=== PATIENT | male | born 1945 | race Caucasian/White ===

== ENCOUNTER 2016-08-16 15:04 | Emergency (ER) | payer MEDICARE, OTHER ==
[2016-08-16 15:26] VITALS: BP 147/76
[2016-08-16] MEDS ORDERED: Sodium Chloride 0.9% 10 ML Syringe FLUSH PRN (15:44)
--- NOTE | 2016-08-16 16:05 | EDM.PDOC ---
ED HISTORY OF PRESENT ILLNESS - General Chief Complaint: Cardiovascular Problem Stated Complaint: Irregular heart beat Time Seen by Provider: 08/16/16 15:35 Source of Information: Reports: Patient, RN notes reviewed History Limitations: Reports: No limitations - History of Present Illness INITIAL COMMENTS - FREE TEXT/NARRATIVE: 71 year old male presents to the ED today with complaints of intermittent palpitations and irregular heart beat. He says he feels the palpitations in his chest and will check his pulse, noting it to be irregular. He reports an abnormal sensation in his chest when this happens. He denies chest pain but describes it as a discomfort similar to feeling scared. He is unable to describe the pain. He denies pressure, heaviness, or sharp chest pain. He denies syncope, lightheadedness, dizziness, diaphoresis, shortness of breath, cough. He has a history hypertension, high cholesterol, and lower extremity edema. He denies history of AL. He had a cardiac cath about 15 years ago which was normal. He used to smoke but quit in 1979. He is from [facility] but is currently working in [place]. No recent illness, fever or chills. He denies lower extremity edema or unilateral calf pain or redness. After reviewing his medications, I see that he is on diltiazem. When asked why he is on this, he says for high blood pressure. He has no history of a.fib that he's aware of. - Related Data Allergies/ADRs: Allergies Allergy/AdvReac Type Severity Reaction Status Date / Time No Known Allergies Allergy Verified 08/16/16 15:19 Home Meds: Home Meds Diltiazem [Cardizem CD] 180 mg PO DAILY 08/16/16 [History] Insulin Detemir [Levemir] 45 unit SUBCUT BID 08/16/16 [History] Insulin Lispro [Humalog] 15 unit SQ TID 08/16/16 [History] Naproxen Sodium [Aleve] 2 tab PO BID 08/16/16 [History] Triamterene/Hydrochlorothiazid [Triamterene-HCTZ 37.5-25 MG] 1 cap PO DAILY [History] Past Medical History Cardiovascular History: Reports: Hypertension Endocrine/Metabolic History: Reports: Diabetes, type I Oncologic (Cancer) History: Reports: Prostate - Past Surgical History GI Surgical History: Reports: Other (see below) Other GI Surgeries/Procedures: heartburn Social & Family History - Tobacco Use Smoking Status *Q: Former Smoker Used Tobacco, but Quit: No - Recreational Drug Use Recreational Drug Use: No ED ROS GENERAL - Review of Systems Review Of Systems: See Below Constitutional: Reports: no symptoms. Denies: fever, chills, diaphoresis Respiratory: Reports: No Symptoms. Denies: Shortness of Breath, Pleuritic Chest Pain, Cough Cardiovascular: Reports: Chest pain, Palpitations. Denies: Edema, Lightheadedness, Syncope GI/Abdominal: Reports: No symptoms. Denies: Abdominal pain, Nausea, Vomiting ED EXAM, GENERAL - Physical Exam Exam: See Below Exam Limited By: No limitations General Appearance: alert, WD/WN, no apparent distress Respiratory/Chest: no respiratory distress, lungs clear, normal breath sounds, no accessory muscle use, chest non-tender Cardiovascular: normal peripheral pulses, regular rate, rhythm, no edema, no murmur, other (occasional rare PVC on diver's tender, currently asymptomatic ) GI/Abdominal: normal bowel sounds, soft, non tender Extremities: normal inspection, normal range of motion, non-tender, no pedal edema. No: leg pain, increased warmth, redness Neurological: alert, oriented, normal cognition Skin Exam: Warm, Dry, Intact EKG INTERPRETATION EKG Date: 08/16/16 Time: 15:30 Rhythm: NSR Rate (beats/min): 69 [place]: normal P-wave: present QRS: normal ST-T: normal QT: normal EKG Interpretation Comments: EKG read by Dr. Paula. No acute changes. Course - Vital Signs Last Recorded V/S: Last Vital Signs Temp 98.0 F 08/16/16 15:23 Pulse 72 08/16/16 15:23 Resp 18 08/16/16 15:23 BP 147/76 H 08/16/16 15:23 Pulse Ox 97 08/16/16 15:23 - Orders/Labs/Meds Orders: Active Orders 24 hr Category Date Time Status Cardiac Monitoring [RC] . DIRECTED Care 08/16/16 15:44 Active EKG 12 Lead [EKG Documentation Completion] [RC] STAT Care 08/16/16 15:44 Active Holter Monitor 48 Hours [RC] .PRN Care 08/16/16 16:42 Ordered Peripheral IV Care [RC] . DIRECTED Care 08/16/16 15:46 Active CXR [Chest 1V Frontal] [CR] Stat Exams 08/16/16 15:44 Taken Sodium Chloride 0.9% [Saline Flush] Med 08/16/16 15:44 Active 10 ml FLUSH ASDIRECTED PRN Peripheral IV Insertion Adult [OM.PC] Stat Oth 08/16/16 15:46 Ordered Medication Orders Sodium Chloride (Saline Flush) 10 ml FLUSH ASDIRECTED PRN PRN Reason: Keep Vein Open Last Admin: 08/16/16 15:59 Dose: 10 ml Labs: Laboratory Tests 08/16/16 08/16/16 Range/Units 15:55 15:55 WBC 5.05 (4.23-9.07) K/mm3 RBC 4.86 (4.63-6.08) M/mm3 Hgb 13.8 (13.7-17.5) gm/L Hct 41.6 (40.1-51.0) % MCV 85.6 (79.0-92.2) fl MCH 28.4 (25.7-32.2) pg MCHC 33.2 (32.2-35.5) g/dl RDW Std Deviation 42.0 (35.1-43.9) fL Plt Count 162 L (163-337) K/mm3 MPV 9.9 (9.4-12.3) fl Neut % (Auto) 52.9 (34.0-67.9) % Lymph % (Auto) 30.3 (21.8-53.1) % Pepin % (Auto) 10.1 (5.3-12.2) % Eos % (Auto) 5.7 (0.8-7.0) Baso % (Auto) 0.8 (0.1-1.2) % Neut # (Auto) 2.67 (1.78-5.38) K/mm3 Lymph # (Auto) 1.53 (1.32-3.57) K/mm3 Pepin # (Auto) 0.51 (0.30-0.82) K/mm3 Eos # (Auto) 0.29 (0.04-0.54) K/mm3 Baso # (Auto) 0.04 (0.01-0.08) K/mm3 Sodium 141 (136-145) mEq/L Potassium 3.2 L (3.5-5.1) mEq/L Chloride 105 (98-107) mEq/L Carbon Dioxide 26 (21-32) mEq/L Anion Gap 13.2 (5-15) BUN 11 (7-18) mg/dL Creatinine 0.8 (0.7-1.3) mg/dL Est Cr Clr Drug Dosing 90.26 mL/min Estimated GFR (MDRD) > 60 (>60) mL/min BUN/Creatinine Ratio 13.8 L (14-18) Glucose 121 H (83-115) mg/dL Calcium 8.6 (8.5-10.1) mg/dL Total Bilirubin 0.4 (0.2-1.0) mg/dL AST 23 (15-37) U/L ALT 47 (16-63) U/L Alkaline Phosphatase 88 (46-116) U/L Troponin I < 0.017 (0.00-0.056) ng/mL Total Protein 6.3 L (6.4-8.2) g/dl Albumin 3.6 (3.4-5.0) g/dl Globulin 2.7 gm/dL Albumin/Globulin Ratio 1.3 (1-2) Meds: Medications Generic Name Dose Route Start Last Admin Trade Name Freq PRN Reason Stop Dose Admin Sodium Chloride 10 ml 08/16/16 15:44 08/16/16 15:59 Saline Flush FLUSH 10 ml ASDIRECTED PRN Administration Keep Vein Open Discontinued Medications Generic Name Dose Route Start Last Admin Trade Name Freq PRN Reason Stop Dose Admin Potassium Chloride 20 meq 08/16/16 16:43 08/16/16 17:18 Klor-Con M20 PO 08/16/16 16:44 20 meq ONETIME ONE Administration - Re-Assessments/Exams Free Text/Narrative Re-Assessment/Exam: CBC is normal. CMP reveals potassium of 3.2, otherwise normal. Troponin is WNL. EKG reveals NSR with no ischemic changes or ectopy. Chest xray reveals normal mediastinum and heart size. No pulmonary infiltrates or effusions. Patient was monitored throughout his stay. He has a very occasional PVC on the diver's tender. BP and heart rate were stable. He was given 20 meq of PO KcL for potassium of 3.2. He was placed on a 48 hour Holter monitor. The patient said he will be here for quite some time and would prefer to f/u here in [place]. I scheduled him a follow-up appointment with Dr. Leiva for Saturday08/21/16 at 11:30am. The patient was educated on return precautions and follow-up instructions. Departure - Departure Time of Disposition: 16:44 Disposition: Home, Self-Care 01 Condition: good Clinical Impression: Heart palpitations, Hypokalemia Instructions: Hypokalemia, Palpitations, [id number] Referrals: PCP,Not In Area [Primary Care Provider] - Forms: ED Department Discharge Additional Instructions: Follow instructions for 48-hour holter monitor. Return to ER with any worsening of syncope, chest pain, shortness of breath, dizziness, or lightheadedness Follow-up with Dr. Leiva next week, August 21 at 11:30am. Please arrive 20 minutes early for check in Call [phone] to reschedule if needed - My Orders Last 24 Hours: My Active Orders 08/16/16 15:44 Cardiac Monitoring [RC] . DIRECTED EKG 12 Lead [EKG Documentation Completion] [RC] STAT CXR [Chest 1V Frontal] [CR] Stat Sodium Chloride 0.9% [Saline Flush] 10 ml FLUSH ASDIRECTED PRN 08/16/16 15:46 Peripheral IV Care [RC] . DIRECTED Peripheral IV Insertion Adult [OM.PC] Stat 08/16/16 16:42 Holter Monitor 48 Hours [RC] .PRN - Assessment/Plan Last 24 Hours: My Active Orders 08/16/16 15:44 Cardiac Monitoring [RC] . DIRECTED EKG 12 Lead [EKG Documentation Completion] [RC] STAT CXR [Chest 1V Frontal] [CR] Stat Sodium Chloride 0.9% [Saline Flush] 10 ml FLUSH ASDIRECTED PRN 08/16/16 15:46 Peripheral IV Care [RC] . DIRECTED Peripheral IV Insertion Adult [OM.PC] Stat 08/16/16 16:42 Holter Monitor 48 Hours [RC] .PRN
[2016-08-16] MEDS ORDERED: Potassium Chloride 20 MEQ Tab.ER PO ONE (16:43)
--- NOTE | 2016-08-17 10:32 | CR ---
Chest: Frontal view of the chest was obtained. Comparison: No previous study. Heart size is within normal limits. Mild tortuosity of the thoracic aorta is seen. Lungs show slight increased markings which are believed to be chronic. No acute infiltrates are suspected. Bony structures are within normal limits for the patient's age. Impression: 1. Nothing acute is suspected on frontal chest x-ray. Diagnostic code #2
== END 2016-08-16 17:36 | disposition home or self-care (01) ==
LOC: JD.ED 15:04
DX: R00.2 Palpitations (principal); E87.6 Hypokalemia; I10 Essential (primary) hypertension; E10.9 Type 1 diabetes mellitus without complications; Z79.4 Long term (current) use of insulin; Z79.899 Other long term (current) drug therapy; Z87.891 Personal history of nicotine dependence
CPT/HCPCS: 36415; 71010; 80053; 84484; 85025; 93005; 93225; 93226; 99285; A9270; J7050; 99284